=== PATIENT | male | born 1995 | race American Indian/Alaskan Native ===

== ENCOUNTER 2020-07-03 01:40 | Emergency (ER) | payer SELFPAY ==
[2020-07-03 01:42] VITALS: BP 135/79; PULSE 88; RESP 16; TEMP 36.2; O2SAT 97; BMI 39.9
--- NOTE | 2020-07-03 02:02 | ED.VIS.GEN ---
History of Present Illness Chief Complaint: Abd Pain Informant: Patient Onset: Hours Context: Gradual Onset Current Severity: Moderate Maximum Severity: Moderate Narrative: Patient presents with epigastric abdominal pain and reports of vomiting black material. Patient states symptoms started shortly after he was eating [employer]. He states earlier in the day he felt just fine. He denies fever or chills. No prior abdominal surgeries. Past Medical History - Allergies and Home Meds Allergies/Adverse Reactions: Allergies sulfamethoxazole [From Bactrim] Adverse Reaction (Verified 07/03/20 01:45) NEEDS FOLLOW-UP trimethoprim [From Bactrim] Adverse Reaction (Verified 07/03/20 01:45) NEEDS FOLLOW-UP Primary Care Physician: [facility] Doctor,Out of [NON-STAFF] - Past Medical History: None Surgical History: tonsillectomy Smoking Status: Current some day smoker Alcohol: Occasional Review of Systems General: Denies: Chills, Fever Eyes: Denies: Visual changes - bilaterally ENT: Denies: Bilateral ear pain Cardiovascular: Denies: Chest pain Respiratory: Denies: Dyspnea, Cough Gastrointestinal: Reports: Abdominal pain, Nausea, Vomiting. Denies: Diarrhea, Constipation Genitourinary: Denies: Dysuria Musculoskeletal: Denies: Swelling, Extremity Pain Skin: Denies: Rash Hematologic: Denies: Easy bruising, Easy bleeding Allergy: Denies: Uticaria Physical Exam Vital Signs/Narrative: Vital Signs Temp Pulse Resp BP Pulse Ox 07/03/20 01:42 97.2 F L 88 16 135/79 H 97 Inital Vital Signs reviewed: Yes General: Well nourished, Well developed Head: Normocephalic ENT: Moist mucous membranes Neck: Supple Cardiovascular: Regular rate, Regular rhythm Respiratory: No distress, CTA bilaterally Abdomen: Soft, Tender - Epigastric tenderness to palpation.. Negative for: Guarding, Rebound tenderness Extremities: Nontender Skin: Normal color Neurological: Alert, Oriented x3 Psychological: Normal affect Diagnostic/Tx/Re-eval 07/03/20 02:20 Vomitus Gastric Occult Blood - Final Laboratory Results 07/03/20 07/03/20 07/03/20 01:50 01:50 02:12 WBC 8.9 RBC 4.86 Hgb 15.0 Hct 43.8 MCV 90.1 MCH 30.9 MCHC 34.2 RDW Std Deviation 42.5 RDW Coeff of Ruben 13.1 Plt Count 301 MPV 9.6 Immature Gran % (Auto) 0.700 Neut % (Auto) 49.3 Lymph % (Auto) 37.0 Lyman % (Auto) 7.8 Eos % (Auto) 4.3 Baso % (Auto) 0.9 Absolute Neuts (auto) 4.4 Absolute Lymphs (auto) 3.29 Nucleated RBC % 0 PT 12.3 INR 1.0 APTT 31.1 Sodium 141 Potassium 4.2 Chloride 112 H Carbon Dioxide 20.0 L Anion Gap 9 BUN 12 Creatinine 1.03 Estim Creat Clear Calc 119.29 Est GFR (MDRD) Af Amer 112 Est GFR (MDRD) Non-Af 92 BUN/Creatinine Ratio 11.7 Glucose 123 H Calcium 7.9 L Total Bilirubin 0.40 Direct Bilirubin < 0.05 AST 97 H ALT 119 H Alkaline Phosphatase 179 H Total Protein 7.7 Albumin 3.6 Globulin 4.1 Lipase 73 - Medical Decision Making Patient was given Zofran and a dose of Protonix here. On repeat evaluation he does feel improved. Blood work is unremarkable and gastrooccult is negative for blood. He is reassured with his findings. I will write him prescription for Zofran and Prilosec. ED Disposition - Plan for ED Patient: Disposition: Home or Assisted Living Diagnosis: Gastritis, Vomiting Instructions: ED Gastritis, ED Nausea Vomiting Adult Prescriptions: Omeprazole [Prilosec] 20 mg PO DAILY #30 cap Transmission Status: Pending to [email or web address]30 Ondansetron [Zofran Odt] 4 mg PO Q8H PRN PRN #10 tab PRN Reason: Nausea Transmission Status: Pending to [email or web address] Referrals: [facility] Doctor,Out of [NON-STAFF] -
[2020-07-03] MEDS: 0.9% Normal Saline 1,000 ML 1000 ML IV (02:04)
[2020-07-03] MEDS: Ondansetron 4 MG/2 ML Vial IV (02:04)
[2020-07-03 02:12] LABS: Absolute Lymphocyte Count 3.29 X10^3/uL (0.83-4.51); Absolute Neutrophil Count 4.4 X10^3/uL (2.0-7.7); Basophil# 0.08 X10^3/uL; Basophil% 0.9 % (0-1); Eosinophil# 0.38 X10^3/uL; Eosinophils% 4.3 % (0-5); Hematocrit 43.8 % (40-54); Lymphocyte # 3.29 X10^3/ul (4.0); Mean Corp Hgb Conc 34.2 g/dL (32-36); Mean Corpuscular Hgb 30.9 pg (27.0-32.0); Mean Corpuscular Volume 90.1 fL (80-94); Mean Platelet Vol. 9.6 fl (6.2-12.0); Monocyte# 0.69 X10^3/uL; Monocyte% 7.8 % (0-10); NRBC Flagged by Analyzer 0 % (0-5); Neutrophil % 49.3 % (47-70); Platelet Count 301 K/mm3 (150-450); RBC Distribution Width CV 13.1 % (11.6-14.6); RBC Distribution Width SD 42.5 fl (35.1-43.9); Red Blood Count 4.86 M/mm3 (4.6-6.2); White Blood Count 8.9 K/mm3 (4.4-11.0)
[2020-07-03 02:25] LABS: Prothrombin Time (Protime)PT. 12.3 SECONDS (11.7-14.9)
[2020-07-03 02:26] LABS: Partial Thromboplast Time 31.1 Seconds (24.1-36.2)
[2020-07-03 02:30] LABS: AST(SGOT) 97 U/L (15-37); Alanine Aminotransfer ALT/SGPT 119 U/L (16-61); Albumin, Serum 3.6 g/dL (3.2-5.0); Alkaline Phosphatase 179 U/L (45-117); Anion Gap 9 (5-15); BUN 12 mg/dL (7-18); BUN/Creat Ratio 11.7 RATIO (10-20); Bilirubin, Direct < 0.05 mg/dL (0.00-0.30); Calcium,Total 7.9 mg/dL (8.5-10.1); Chloride 112 mmol/L (98-107); Creatinine, Serum 1.03 mg/dL (0.70-1.30); EST Glomerular Filtration Rate 92 mL/min (>60); Est Glom Filt Rate - Afr Amer 112 mL/min (>60); Estimated Creatinine Clearance 119.29 ml/min; Globulin 4.1 g/dL (2.2-4.2); Glucose 123 mg/dL (74-106); Lipase 73 U/L (73-393); Potassium 4.2 mmol/L (3.5-5.1); Protein, Total 7.7 g/dL (6.4-8.2); Sodium Level 141 mmol/L (136-145)
[2020-07-03 03:13] VITALS: BP 132/73; PULSE 70; RESP 16; O2SAT 97
== END 2020-07-03 03:14 | disposition home or self-care (01) ==
PROVIDERS: Emergency Provider Emergency Medicine
DX: K29.70 Gastritis, unspecified, without bleeding (principal); R11.10 Vomiting, unspecified; F17.200 Nicotine dependence, unspecified, uncomplicated
CPT/HCPCS: 80048; 80076; 82271; 83690; 85025; 85610; 85730; 96365; 96375; 99283; J7030; A4216; J2405

== ENCOUNTER 2020-12-06 06:29 | Emergency (ER) | payer SELFPAY ==
[2020-09-12 11:08] VITALS: BMI 38.7
[2020-12-06 06:30] VITALS: BP 124/94; PULSE 82; RESP 16; TEMP 36.2; O2SAT 98; BMI 38.0
--- NOTE | 2020-12-06 07:21 | EDS_ITS ---
HPI History of Present Illness Chief Complaint: Back Onset/Context/Timing Onset: Today Injury: fall Timing: Continuous Quality: Sharp, Aching and Burning Location: Thoracic and Lumbar Worsened by: improves with Nothing Relieved by: Nothing Associated Symptoms Associated Symptoms: Negative for Numbness, Tingling, Radiation to Right Leg, Radiation to Left Leg, Fever, Abdominal Pain, Dysuria, Unable to Ambulate, Unable to Transfer, Urinary Retention, Urinary Incontinence, Constipation and Fecal Incontinence Narrative Narrative: Patient presents with back pain that became worse today. Patient st ates he slipped and fell this morning while he was trying to get ready for work. Patient states he landed on his back and fell down approximately 5 steps. Patient states his pain is over the thoracic and lumbar area but is worse over the thoracic area. Patient states he was having some pain last week and went to [facility]. Patient states he was diagnosed with a thoracic nerve strain at that time. Patient was given ibuprofen and Flexeril. Patient states these have not been helping much. Patient denies any radiation of the pain. Patient denies any bowel or bladder changes. Patient denies any saddle anesthesia. PFSH PFSH Home Medications loratadine 10 mg tablet 10 mg PO DAILY 09/12/20 [History Last Taken Unknown] cyclobenzaprine 10 mg TID PRN PRN 12/06/20 [History Last Taken Unknown] ibuprofen 600 mg PO Q6H PRN PRN 12/06/20 [History Last Taken Unknown] Allergy/AdvReac Type Severity Reaction Status Date / Time sulfamethoxazole AdvReac NEEDS Verified 12/06/20 06:36 [From Bactrim] FOLLOW-UP trimethoprim [From Bactrim] AdvReac NEEDS Verified 12/06/20 06:36 FOLLOW-UP Family History (Updated 09/12/20 @ 11:12 by Lucy Govea) Mother Diabetes Heart disease Father Heart disease Diabetes Surgical History History of tonsillectomy and adenoidectomy Social History Smoking Status: Former smoker Tobacco: How many years used: 7 alcohol intake: current alcohol intake frequency: other Alcohol type: hard liquor details: Weekends only ROS ROS ED Constitutional Constitutional ED: Denies chills or fever(s) Eyes Eyes: Denies blurry vision or change in vision ENT ENT ED: Denies rhinorrhea or sore throat Cardiovascular Cardiovascular: Denies chest pain or palpitations Respiratory/Chest Respiratory/Chest: Reports dyspnea; Denies sputum Gastrointestinal Gastrointestinal: Denies nausea or vomiting Genitourinary Genitourinary ED: Denies dysuria or hematuria Musculoskeletal Musculoskeletal: Reports back pain and neck pain Integumentary Denies abscess or rash Neurologic Neurologic: Denies paresthesias or weakness Allergic/Immunologic Allergic/Immunologic ED: Denies mouth swelling or urticaria EXAM Physical Exam Const Vital Signs: 12/06/20 06:30 12/06/20 06:36 Temperature 97.2 F L Temperature Source Temporal Pulse Rate 82 Respiratory Rate 16 Blood Pressure 124/94 H Blood Pressure Mean 104 Pulse Ox 98 Oxygen Delivery Method Room Air Bi-pap Positive well nourished, well developed and obese General Appearance ED: well developed Nutritional Appearance: obese Neck supple and no JVD Back/Spine Back/Spine Narrative: There is some mild tenderness to palpation over the right thoracic paraspinal muscles. There is also some tenderness over the lower lumbar spine. There is no edema or ecchymosis. There is no bony crepitance or step-off. Range of motion was slightly limited in all motions of the thoracic and lumbar spine secondary to pain. Thoracic Spine / Upper Back: paraspinal muscle tenderness right Lumbar Spine / Lower Back: ROM limited Neuro oriented x3 and no sensory deficits noted Sensorium / Orientation: alert Motor Exam: strength 5/5 throughout Deep Tendon Reflexes: Rt Patellar (L4): 1+, Lt Patellar (L4): 1+, Rt Ankle (S1): 1+ and Lt Ankle (S1): 1+ Deep Tendon Reflexes Back: Rt Patellar (L4): 1+, Lt Patellar (L4): 1+, Rt Ankle (S1): 1+ and Lt Ankle (S1): 1+ Psych mental status grossly normal MDM MDM MDM Narrative Medical decision making narrative: X-rays of the thoracic and lumbar spine were obtained and were within normal limits. Patient was advised that this is most likely a contusion or muscular strain. Patient was instructed to continue ibuprofen and Flexeril as previously prescribed. Patient was instructed to use ice to the area. Patient was instructed to follow-up with his primary care physician in 5 to 7 days. Patient understood and was agreeable with the plan. All questions were answered. Radiography X-Ray: LS SPine, T-Spine, Read by ED Physician, Read by Radiologist and Normal Diagnostic Testing: Radiology Impression Thoracic Spine X-Ray 12/06/20 07:21 IMPRESSION: No fracture or dislocation in the thoracic spine. Electronically Signed: Raul Fofana MD at 8:13 EDT Tel , Service support , X-rays of the thoracic spine were obtained. There are 4 views. On my interpretation, there is no acute fracture, spondylolisthesis or spondylolysis noted. Radiologist also interpreted the x-rays and agrees. X-rays of the lumbar spine were obtained. There are 3 views. On my interpretation, there is no acute fracture, spondylolisthesis, or spondylolysis. Radiologist also interpreted the x-rays and noted a questionable spondylolysis of the L5 vertebrae. There is no spondylolisthesis. Discharge Plan Triage Chief Complaint: Back ED Provider: Campbell Ordonez Dx/Rx/DC Orders Clinical Impression: Contusion of back wall of thorax, Lumbar contusion Instructions: ED Back Sprain/Strain, ED Back Contusion Prescriptions: No Action loratadine [Claritin] 10 mg tablet 10 mg PO DAILY RF: 0 cyclobenzaprine 10 mg tablet 10 mg TID PRN PRN (Reason: Breakthrough Pain) RF: 0 ibuprofen 600 mg tablet 600 mg PO Q6H PRN PRN (Reason: Breakthrough Pain) RF: 0 Primary Care Provider: Care Physician,No Primary Referrals: Katlyn Gaytan MD [STAFF PHYSICIAN] - 5-7 Days Care Physician,No Primary [Primary Care Provider] - Disposition Disposition: Home, self care
--- NOTE | 2020-12-06 07:21 | RAD_ITS ---
STUDY: X-RAY - THORACIC SPINE REASON FOR EXAM: Male, 24 years old. Injury. Pain. TECHNIQUE: 4 view(s) of the thoracic spine were obtained. COMPARISON: None. FINDINGS: There is no evidence of fracture or dislocation in the thoracic spine. The vertebral body heights and disc spaces are well-maintained. There are no significant degenerative changes. RAD/Thoracic Spine 3 Views IMPRESSION: No fracture or dislocation in the thoracic spine. Electronically Signed: Raul Fofana MD at 8:13 EDT Tel , Service support ,
--- NOTE | 2020-12-06 07:21 | RAD_ITS ---
STUDY: X-RAY - LUMBAR SPINE REASON FOR EXAM: Male, 24 years old. Injury/Pain TECHNIQUE: 3 view(s) of the lumbar spine were obtained. COMPARISON: None FINDINGS: There is an exaggerated lumbar lordosis. There is no substantial scoliosis. There is a normal alignment of the vertebrae. Partial sacralization of the L5 vertebrae. Normal vertebral bodies and endplates. Disc space narrowing at the L5-S1 level. Questionable spondylolysis of the pars interarticularis of the L5 vertebra The soft tissue structures are unremarkable. RAD/Lumbar Spine 2 or 3 Views IMPRESSION: Transitional L5 vertebra. Questionable spondylolysis of the pars interarticularis of the L5 vertebrae without listhesis. Electronically Signed: Hemant Zamarripa MD at 8:14 EDT , Service support ,
[2020-12-06 08:21] VITALS: BP 122/92; PULSE 58; RESP 17; O2SAT 98
== END 2020-12-06 08:23 | disposition home or self-care (01) ==
PROVIDERS: Emergency Provider Emergency Medicine
DX: S30.0XXA Contusion of lower back and pelvis, initial encounter (principal); S20.229A Contusion of unspecified back wall of thorax, initial encounter; W10.9XXA Fall (on) (from) unspecified stairs and steps, initial encounter; Y93.9 Activity, unspecified; Y92.9 Unspecified place or not applicable; Y99.9 Unspecified external cause status; Z87.891 Personal history of nicotine dependence
CPT/HCPCS: 72072; 72100; 99282

== ENCOUNTER 2021-10-13 07:57 | Emergency (ER) | payer BC, SELFPAY ==
[2021-10-13 07:58] VITALS: BP 124/73; PULSE 90; RESP 18; TEMP 36.9; O2SAT 92; BMI 37.7
--- NOTE | 2021-10-13 08:44 | EX.ED.VIS.UR ---
HPI HPI - URI History of Present Illness Chief Complaint: Shortness of Breath Informant: patient Onset/Context/Timing Onset: Days Context: Gradual Onset Timing: Continuous Current Severity: Mild Maximum Severity: Mild Associated Symptoms Associated Symptoms: Positive for Nausea, Vomiting, Shortness of Breath and Productive Cough; Negative for Diarrhea Narrative Narrative: 25-year-old male no seen past medical history. States he has had a cold for about the last week. Productive cough of whitish sputum. Subjective fever and chills. Mild headache. He had one episode of nausea and vomiting. He had a negative rapid Covid test 2 days ago and a negative home test today. He had similar symptoms when he had asthmatic bronchitis. Prior similar symptoms: Yes Recent Illness/Hospitalization: No ROS ROS ED ROS Narrative Cough. Fever and chills. Mild dyspnea. Review of Systems ROS Unobtainable: Denies due to encephalopathy Constitutional Constitutional ED: Reports chills, fever(s) and subjective Eyes Eyes: Denies change in vision ENT ENT ED: Denies ear pain, rhinorrhea or sore throat Cardiovascular Cardiovascular: Denies chest pain or palpitations Respiratory/Chest Respiratory/Chest: Reports cough, dyspnea and sputum Gastrointestinal Gastrointestinal: Reports nausea and vomiting; Denies abdominal pain or diarrhea Genitourinary Genitourinary ED: Denies dysuria or hematuria Musculoskeletal Musculoskeletal: Denies arthralgias, myalgias or neck pain Integumentary Denies rash Neurologic Neurologic: Reports headache(s) Psychiatric Psychiatric: Denies depression Endocrine Endocrinology: Denies polyuria Hematologic/Lymphatic Hematologic/Lymphatic: Denies easy bruising Allergic/Immunologic Allergic/Immunologic ED: Denies urticaria PFSH PFS Medical History Asthmatic bronchitis with exacerbation Home Medications cyclobenzaprine 10 mg TID PRN PRN 12/06/20 [History Last Taken Unknown] albuterol sulfate 90 mcg/actuation aerosol inhaler 2 puff INHALATION Q6H PRN #8.5 g 08/10/21 [Rx Last Taken Unknown] azithromycin 250 mg tablet 250 mg PO QDAY #6 tab 08/10/21 [Rx Last Taken Unknown] prednisone 40 mg PO DAILY 7 Days #14 tab 10/13/21 [Rx Last Taken Unknown] Allergy/AdvReac Type Severity Reaction Status Date / Time sulfamethoxazole AdvReac NEEDS Verified 10/13/21 08:00 [From Bactrim] FOLLOW-UP trimethoprim [From Bactrim] AdvReac NEEDS Verified 10/13/21 08:00 FOLLOW-UP Family History Mother Diabetes Heart disease Father Heart disease Diabetes Surgical History History of tonsillectomy and adenoidectomy Social History Smoking Status: Former smoker Tobacco: How many years used: 7 alcohol intake: current alcohol intake frequency: other Alcohol type: hard liquor details: Weekends only EXAM Physical Exam Narrative Exam Narrative: 25-year-old male no acute distress vital signs stable afebrile. Pulse ox 92% on room air no hypoxia. H EENT exam unremarkable. Moist mucous membranes. Neck nontender no lymphadenopathy. Lungs scattered expiratory wheezes. No rales, rhonchi. Equal symmetrical. Heart regular rate and rhythm rate about 90 no murmur. Abdomen soft nontender. Moving all 4 extremities. Calves are nontender without edema or cords. Otherwise exam unremarkable. Const Vital Signs: 10/13/21 07:58 10/13/21 09:02 10/13/21 09:03 Temperature 98.4 F Temperature Source Temporal Pulse Rate 90 86 Respiratory Rate 18 18 Respiratory Effort Short of Breath Respiratory Depth Shallow Respiratory Pattern Normal Blood Pressure 124/73 H Blood Pressure Mean 90 Pulse Ox 92 Oxygen Delivery Method Room Air Positive well nourished, well developed and obese; Negative for cachectic or contractures General Appearance ED: well developed and NAD; Negative for cachectic, contractures, cyanotic, diaphoretic or pallor Nutritional Appearance: obese; Negative for cachectic HEENT Reports moist mucous membranes normocephalic and atraumatic External Ear: external ears normal Eyes PERRL and EOMs intact bilaterally Neck no lymphadenopathy, supple, no meningeal signs and no JVD General: Negative for anterior neck swelling or lymphadenopathy Resp normal respiratory effort and No clear to auscultation bilaterally Resp Narrative: Expiratory wheezing bilaterally. Auscultation: wheezes; Negative for rales or rhonchi Cardio S1 normal heart sound, S2 normal heart sound and no murmurs Rate: regular rate Rhythm: regular rhythm GI non-tender, non-distended and no masses Inspection: Negative for abdominal distention Auscultation: normoactive bowel sounds Palpation: soft; Negative for tender or guarding Back/Spine no CVA tenderness and normal ROM General Back: Negative for CVA tenderness Cervical Spine: Negative for cervical spine tenderness Thoracic Spine / Upper Back: Negative for thoracic spinal tenderness Extremity normal to inspection and full ROM General Extremety ED: Negative for cyanosis or tenderness General Extremity: Negative for cyanosis Neuro oriented x3 and CN's II-XII intact bilaterally Sensorium / Orientation: alert, oriented to person, oriented to place and oriented to time; Negative for orientation impaired, lethargic or stuporous Motor Exam: strength 5/5 throughout; Negative for general weakness or strength abnormal Psych mental status grossly normal Attitude: No agitated Mood & Affect: Negative for depressed or tearful Skin General Skin Exam: Negative for jaundice or pallor Lesions: no lesions Rashes: no rashes MDM MDM MDM Narrative Medical decision making narrative: 25-year-old male no acute distress. Most likely has bronchitis with bronchospasm. Treated with a DuoNeb aerosol and prednisone. He is already had 2 - Covid test. Chest x-ray pending. Clinically I doubt he has pneumonia. Repeat exam patient is doing well at 9:13 AM. Wheezing is improved after he had his aerosol treatment and steroid. He is comfortable being discharged home. He will be written a prescription for prednisone for 1 week. Radiography Diagnostic Testing: Chest x-ray, portable, single view interpreted myself shows no acute abnormality. Normal cardiac silhouette. No infiltrate. No pneumonia. Discharge Plan Triage Chief Complaint: Shortness of Breath ED Provider: Monico Dickson Dx/Rx/DC Orders Clinical Impression: Acute bronchitis with bronchospasm Instructions: Acute Bronchitis Prescriptions: New prednisone 20 mg tablet 40 mg PO DAILY 7 Days Qty: 14 RF: 0 No Action azithromycin 250 mg tablet 250 mg PO QDAY Qty: 6 RF: 0 albuterol sulfate 90 mcg/actuation HFA aerosol inhaler 2 puff inhalation Q6H PRN (Reason: shortness of breath or wheezing) Qty: 8.5 RF: 0 cyclobenzaprine 10 mg tablet 10 mg TID PRN PRN (Reason: Breakthrough Pain) RF: 0 Primary Care Provider: Care Physician,No Primary Referrals: Savage Perez MD [STAFF PHYSICIAN] - 1 Week if not improving Care Physician,No Primary [Primary Care Provider] - Activity Restrictions/Additional Instructions: Viral respiratory tract infection. You do not need antibiotics. Inflammation in your lungs and stop the wheezing. Your chest x-ray was unremarkable. No pneumonia. Disposition Disposition: Home, Self Care
--- NOTE | 2021-10-13 08:53 | RAD_ITS ---
STUDY: X-RAY CHEST REASON FOR EXAM: Male, 25 years old. Cough and shortness of breath. TECHNIQUE: Single AP portable view of the chest. COMPARISON: None. FINDINGS: The lungs are clear and expanded. There is no demonstrated pleural abnormality. Normal size heart. Normal mediastinum and humberto. Normal visualized pulmonary arteries. Normal visualized aortic arch and descending thoracic aorta. Normal visualized thoracic spine. Normal visualized ribs, clavicles, and shoulders. There is no demonstrated abnormality of the visualized soft tissue structures of the upper abdomen. RAD/Chest 1 View (Portable) IMPRESSION: Normal x-ray examination of the chest. Electronically Signed: Hemant Zamarripa MD at 9:23 EST ,
[2021-10-13] MEDS: predniSONE 20 MG Tablet 60 MG PO (08:59)
[2021-10-13] MEDS: Ipratropium/Albuterol Sulfate 3 ML AMPUL.NEB INHALATION (08:59)
[2021-10-13 09:02] VITALS: PULSE 86; RESP 18
== END 2021-10-13 09:22 | disposition home or self-care (01) ==
LOC: ED 09:18
PROVIDERS: Emergency Provider Emergency Medicine; Visit Provider Emergency Medicine
DX: J20.9 Acute bronchitis, unspecified (principal); R11.2 Nausea with vomiting, unspecified; R68.83 Chills (without fever); R51.9 Headache, unspecified; Z20.822 Contact with and (suspected) exposure to COVID-19; Z79.82 Long term (current) use of aspirin; Z79.01 Long term (current) use of anticoagulants; Z79.84 Long term (current) use of oral hypoglycemic drugs; Z79.899 Other long term (current) drug therapy; Z87.891 Personal history of nicotine dependence
CPT/HCPCS: 71045; 94640; 99283